=== PATIENT | female | born 1970 | race Caucasian/White ===

== ENCOUNTER 2016-05-01 07:26 | Inpatient (IN) | payer OTHER ==
--- NOTE | 2016-04-30 09:11 | HP ---
DATE OF CLINIC: 04/25/16 MARY WERNER : 1970 PLANNED PROCEDURE: Right Total Hip Arthroplasty DATE OF SURGERY: May 01, 2016 SURGEON: Philip Castro M.D. HISTORY OF PRESENT ILLNESS Mary Werner is a 45 year old female. * Medication list reviewed with patient allergy list reviewed with patient. 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 She had a CT scan and some long alignment films done and she returns today to discuss treatment options. She says that the pain is getting worse and worse. She rates in the -11/21. She is taking a bunch of Advil this is upsetting her stomach. No other changes in her complaints. After discussion and review of treatment options, both operative and nonoperative, she has elected to proceed with surgery and presents today preoperatively. PAST MEDICAL AND SURGICAL HISTORY: No changes to past medical or surgical history. CURRENT MEDICATION * Advil 200 MG CAPS, prn, 0 days, 0 refills * BuPROPion HCl ER (XL) 150 MG TB24, as directed Take 1 tab daily x2 weeks. Then increase to 2 tabs daily thereafter., 30 days, 3 refills * Ergocalciferol 11208 unit cap Capsule as directed....Take one tablet on Friday and Hosford Bimart, 28 days, 4 refills * Ferrous Sulfate 325 (65 Fe) MG Tablet Delayed Release 1 twice a day, 30 days, 4 refills * Folic Acid 1 MG Tablet 1 once a day, 30 days, 3 refills * Magnesium Gluconate 500 MG Tablet 1 once a day, 30 days, 4 refills * Symbicort 80-4.5 MCG/ACT Aerosol as directed 2 puffs twice a day, 30 days, 0 refills * Ventolin HFA 108 (90 Base) MCG/ACT Aerosol Solution 2 puffs q 4-6 h prn for cough/wheeze, 30 days, 2 refills PAST MEDICAL/SURGICAL HISTORY Reported: No recent change in medical history, LMP: 02/19/2016, Last pap smear date 01/31/2016 result: normal, and Last mammogram date: 01/05/2016 result: normal. Medical: History of Arthritis, Vertigo, Asthma, Anxiety, [place] age 15; has had eight partners; has been a monogamous relationship since 2000, and age at first period was 12. Surgical / Procedural: Prior surgery Right knee loose body removal 08/2008. : 2 and para 2. Diagnoses: Asthma Chronic obstructive pulmonary disease. Diverticulitis of colon. Urinary tract infection pyelo in the distant past. Vaginitis yeast in the past. Anemia Right knee surgery. Procedural: * Colonoscopy by [facility]IN[facility] 10/16/2014 SOCIAL HISTORY Personal: Denies history or current physical, sexual, emotional abuse. Behavioral: Caffeine use 5 cups coffee daily, current smoker 1/2-1 pack per day for 15 years, non-smoker never smoked, and smoking status: Current everyday smoker. Alcohol: Alcohol 1 drink per week. Habits: Lack of adequate sleep has a hard time going to sleep and staying asleep and not exercising regularly due to right hip pain. Home Environment: Lives with spouse Nasir and the living environment is unsatisfactory Lives in 2 bedroom manufactured home.....6 people living in the home. 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 Marital: Single Lives with fiance. Sexual: Sexually active. ALLERGIES * Amoxicillin Reaction: break out * Vicodin FAMILY HISTORY 2 children living Family history unchanged Mom fatty liver; hyperlipidemia; DM type II; HTN Dad DM type II; melanoma; restless legs; age 68 medication error Brothers and sisters healthy...pt doesn't know them well Gastric cancer Grandma Malignant female breast neoplasm Mom's half sister breast cance rin her 50s Family medical history Mother: Diabets, Father: OA, [place], HBP, Bleeding Disorders, REVIEW OF SYSTEMS No recent constitutional symptoms to include fevers and chills. No recent cardiovascular symptoms to include chest pain or palpitations. No recent respiratory symptoms to include shortness of breath or recent infections. Is positive for pain, otherwise negative. PHYSICAL FINDINGS * Vitals taken 04/25/2016 10:50 am BP-Sitting R 125/76 mmHg Pulse Rate-Sitting 68 bpm Temp-Oral 96.8 F Height 63 in Weight 153 lbs 3.2 oz Body Mass Index 27.1 kg/m2 Body Surface Area 1.73 m2 Pain Level 7 Pain Level Note 7.5/10 Ears, Nose, Throat: * ENT: normal. Lungs: * Clear to auscultation. Cardiovascular: Heart Rate And Rhythm: * Normal. Abdomen: * Normal. Neurological: Motor: * Dominant Hand = Right Hand. Patient is a well-developed, well-nourished female in no acute distress. They are awake, alert and conversant throughout the encounter. CARDIOVASCULAR: Intact peripheral pulses on bilateral lower extremities. No significant edema on inspection of bilateral lower extremities. NEUROLOGIC: Patient had intact coordinated composite motion of the bilateral lower extremities and sensation intact to light touch in all distributions of bilateral lower extremities. PSYCHIATRIC: Patient was oriented to person, place and time and displayed appropriate mood and affect during the encounter. SKIN: Exam of the skin on bilateral lower extremities showed no significant scars, lesions, rashes or masses. FOCUSED MUSCULOSKELETAL EXAM: Is unchanged, limited range of motion at the hip with flexion to about 75 degrees and obligate external rotation, 10 degrees of external rotation from neutral. No internal rotation. She can abduct about 15 degrees. She can get to full extension. She has no changes in her sensory exam, it is intact throughout. She continues to have difficulty with a straight leg raise. IMAGING A review of her length and alignment films demonstrates a very close overall length with a change of the difference of about 3 mm side to side. Her femoral lengths appear to be about matched. Her right leg appears to be slightly longer in her tibial and ankle length, it is also significantly externally rotated, overall not a ton of deformity of the hip in terms of leg length. CT scan shows significant osteophytes in the hip, but actually shows a fairly well developed acetabulum with a large prominent central osteophyte that we can remove. She has really better coverage at the top of the acetabulum than I thought that she might. Also, the proximal femur is visualized which shows significant valgus malalignment and a very vertical neck, but pretty good a bone at the calcar. ASSESSMENT This is a 45-year-old female with a grossly dysplastic right hip that has now developed significant arthrosis. PREVIOUS TESTS * Test: URINALYSIS Report Date: 04/10/2016 GLUCOSE NEGATIVE PH,URINE 7.0 SPEC. GRAVITY 1.015 KETONE NEGATIVE NITRITE NEGATIVE BLOOD NEGATIVE BILIRUBIN NEGATIVE APPEARANCE CLEAR PROTEIN NEGATIVE COLOR YELLOW LEUK ESTERASE NEGATIVE UROBILINOGEN NORMAL * Test: CBC NO DIFF Report Date: 04/10/2016 WBC 5.1 10*3/mL MCV 96.6 fL RBC 4.07 10*6/uL Low MCH 33.4 pg High MCHC 34.6 g/dL RDW 12.4 % PLATELET COUNT 249 10*3/mL HCT 39.3 % HGB 13.6 g/L * Test: PROTHROMBIN TIME Report Date: 04/10/2016 PROTIME 9.7 s INR 0.92 * Test: PARTIAL THROMBOPLASTIN TIME Report Date: 04/10/2016 APTT 24.1 s Low * Test: COMPREHENSIVE METABOLIC PANEL Report Date: 04/10/2016 ALT/SGPT 11 U/L ALBUMIN 4.5 g/dL ALB/GLOB RATIO 1.7 BUN 18 mg/dL BUN/CREAT RATIO 23 High CALCIUM 9.8 mg/dL GLUCOSE 96 mg/dL CREATININE 0.8 mg/dL SODIUM 139 meq/L POTASSIUM 4.6 meq/L CHLORIDE 103 meq/L CARBON DIOXIDE 29 meq/L ANION GAP 12 meq/L TOT PROTEIN 7.1 g/dL GLOBULIN 2.6 g/dL BILI,TOTAL 0.8 mg/dL AST/SGOT 13 U/L ALK PHOSPHATASE 57 U/L GFR 77 * Test: MRSA SCREEN Report Date: 04/11/2016 MRSA SCREEN NEGATIVE * Test: MSSA SCREEN Report Date: 04/11/2016 MSSA SCREEN NEGATIVE FOR STAPHYLOCOCCUS AUREUS THERAPY * Patient not eligible for fall risk assessment. PLAN * Unilateral osteoarth resulting from hip dysplasia, right hip Physical Therapy: [facility] [phone] Instructions: Post-op Rehab Right s/p KRISTIN SX: 05/01/16 please scheduled appt the week of 05/06/16 OxyCONTIN 10 MG T12A, Take 1 tablet by mouth every 12 hours for baseline pain contro, 10 days, 0 refills OxyCODONE HCl 5 MG TABS, Take 1-2 tablets by mouth every 4-6 hours as needed for severe breakthrough pain (6-9/10), 14 days, 0 refills TraMADol HCl 50 MG TABS, Take 1-2 tablets by mouth every 6-8 hours as needed for moderate breakthrough pain (3-5/10), 14 days, 0 refills * Total hip replacement -Right CARE TEAM Mariano Cohn MD Pulmonary Disease Miya Nair MD Family Practice Trinh Mccullough, [employer] [facility] SURGICAL CONSENT We have discussed surgical options including right KRISTIN and nonoperative management. The patient was counseled in detail regarding the diagnosis, treatment options available, prognosis of each treatment option and the potential risks and complications. The risks of surgery include, but are not limited to, anesthetic , neurovascular complications, pulmonary embolism, deep vein thrombosis, wound dehiscence, failure of any or all of the discussed procedures, infection of the joint or surrounding soft tissue, need for revision surgery, chronic pain, limitations in activities of daily living, inability to return to work, and loss of normal range of motion or functional use of the extremity. There is the possibility of failure over time that may require additional operative or nonoperative treatment. The patient acknowledged that there are a number of perioperative risks not mentioned here and would still like to proceed. The patient is aware of and understands these risks, and wishes to proceed with the proposed surgical procedure and other procedures as indicated at the time of surgery. We will have the patient see their PCP for a preoperative medical risk assessment. The preoperative instructions were reviewed with the patient and all questions were answered.
[2016-05-01] MEDS ORDERED: TRANEXAMIC ACID 1,000 MG in SODIUM CHLORIDE 0.9% 100 ML IV PRN (09:00)
[2016-05-01] MEDS ORDERED: BUPIVACAINE 0.25% (MDV) 20 ML in SODIUM CHLORIDE 0.9% FLUSH 20 ML IF PRN (09:00)
[2016-05-01] MEDS ORDERED: TRAMADOL HCL 50 MG TABLET PO ONE (09:00)
[2016-05-01] MEDS ORDERED: OXYCODONE HCL 10 MG TAB.SR PO ONE ×2 (09:00→09:21)
[2016-05-01] MEDS ORDERED: FAMOTIDINE 20 MG TABLET PO ONE (09:00)
[2016-05-01] MEDS ORDERED: ONDANSETRON 4 MG/2ML 2 ML VIAL IV ONE (09:00)
[2016-05-01] MEDS ORDERED: GABAPENTIN 600 MG TABLET PO ONE (09:00)
[2016-05-01] MEDS ORDERED: CELECOXIB 200 MG CAPSULE PO ONE (09:00)
[2016-05-01] MEDS ORDERED: CLONIDINE HCL 0.1 MG/24 HR (7 DAY PATCH) TD SCH (09:00)
[2016-05-01] MEDS ORDERED: CLINDAMYCIN 600 MG PREMIX 50 ML IV PRN (09:00)
[2016-05-01] MEDS ORDERED: BUPIVACAINE 0.25% (MDV) 24 ML, MORPHINE SULFATE 8 MG, EPINEPHRINE 0.3 MG in SODIUM CHLO... IF PRN ×8 (09:00)
[2016-05-01] MEDS ORDERED: POLYMYXIN B SULFATE 500,000 UNITS, BACITRACIN 25,000 UNITS in SODIUM CHLORIDE 3 L IRRIG... IR PRN (09:00)
[2016-05-01] MEDS ORDERED: LACTATED RINGERS 1,000 ML ONE ×3 (09:17→17:47)
[2016-05-01] MEDS ORDERED: CLINDAMYCIN 600 MG PREMIX 50 ML IV ONE (09:20)
[2016-05-01] MEDS ORDERED: FAMOTIDINE 20 MG TABLET ONE (09:21)
[2016-05-01] MEDS ORDERED: ONDANSETRON 4 MG/2ML 2 ML VIAL ONE ×2 (09:21→16:22)
[2016-05-01] MEDS ORDERED: PROPOFOL 20 ML IV ONE ×3 (09:21→15:54)
[2016-05-01] MEDS ORDERED: TRAMADOL HCL 50 MG TABLET ONE (09:21)
[2016-05-01] MEDS ORDERED: CELECOXIB 200 MG CAPSULE ONE (09:22)
[2016-05-01] MEDS ORDERED: GABAPENTIN 600 MG TABLET ONE (09:22)
[2016-05-01] MEDS ORDERED: CLONIDINE HCL 0.1 MG/24 HR (7 DAY PATCH) TD ONE (09:22)
[2016-05-01] MEDS ORDERED: MIDAZOLAM HCL 1 MG/ML 2ML VIAL ONE ×2 (09:22→13:40)
[2016-05-01] MEDS ORDERED: FENTANYL 100 MCG/2 ML VIAL ONE (09:22)
[2016-05-01] MEDS ORDERED: SPINAL PROCEDURAL TRAY 1 EACH ONE (10:18)
[2016-05-01] MEDS ORDERED: EPHEDRINE SULFATE UD SYR 25 MG 25 MG/5 ML SYRINGE IV ONE ×2 (14:20→15:03)
[2016-05-01] MEDS ORDERED: DEXAMETHASONE SOD PHOS 4 MG/1 ML VIAL ONE (14:30)
[2016-05-01] MEDS ORDERED: GLYCOPYRROLATE 0.2 MG/ML 1ML VIAL ONE (15:03)
[2016-05-01] MEDS ORDERED: PHENYLEPHRINE 10 MG/1 ML (1%) VIAL ONE (15:17)
[2016-05-01] MEDS ORDERED: PROMETHAZINE HCL 25 MG/ML VIAL IM PRN (15:40)
[2016-05-01] MEDS ORDERED: NALOXONE HCL 0.4 MG/ML VIAL IV PRN (15:40)
[2016-05-01] MEDS ORDERED: ONDANSETRON 4 MG/2ML 2 ML VIAL IV PRN (15:40)
[2016-05-01] MEDS ORDERED: HYDROMORPHONE HCL 1 MG/ML SYRINGE IV PRN (15:40)
[2016-05-01] MEDS ORDERED: FENTANYL 100 MCG/2 ML VIAL IV PRN (15:40)
[2016-05-01] MEDS ORDERED: ATROPINE SULFATE 0.4 MG/1 ML VIAL IV PRN (15:40)
[2016-05-01] MEDS ORDERED: MEPERIDINE 25 MG/ML SYRINGE IV PRN (15:40)
[2016-05-01] MEDS ORDERED: LACTATED RINGERS 1,000 ML IV SCH ×2 (15:45→18:16)
--- NOTE | 2016-05-01 16:29 | RAD ---
HIP RIGHT 1 VIEW HISTORY: Intraoperative examination during placement of right hip arthroplasty. COMPARISONS: 12/28/2015. FINDINGS: A single intraoperative view of the right hip was obtained. There is been interval resection of the right femoral head and a portion of the right femoral neck with a metallic acetabular component noted in place. The visualized osseous pelvis is intact. There is radiopaque material projecting over the patient's pelvis, likely external to the patient. IMPRESSION: 1. A single intraoperative examination demonstrating resection of the femoral head and a portion of the femoral neck with placement of a metallic acetabular component.
--- NOTE | 2016-05-01 16:32 | RAD ---
HIP RIGHT 1 VIEW HISTORY: Intraoperative examination during hip arthroplasty. COMPARISONS: Examination of the same day as well as examination dated 12/28/2015. FINDINGS: Since the most recent examination, there is been placement of a femoral metallic component with the femoral neck component projecting adjacent to the acetabular component. No definite pericomponent fracture is visualized. There are metallic forceps as well as radiopaque material projecting over the lower abdomen and the medial thighs which are likely external to the patient. IMPRESSION: 1. Intraoperative examination during right hip arthroplasty demonstrating a total right hip arthroplasty with no evidence of a pericomponent fracture identified.
--- NOTE | 2016-05-01 16:42 | PCMBPN ---
Brief Post Op Note: Date of Procedure: 05/01/16 Start Time: 1400 Preoperative Diagnosis: 1. right hip arthritis secondary to developmental dysplasia Postoperative Diagnosis: 1. Same Procedure: left total hip arthroplasty Surgeon: Philip Castro MD Assist: Juan Kirkland PA-C Anesthesia: Letha Gar Findings: as above Condition: stable to PACU Complications: none IV Fluids: 2500 mLs of LR Urine Output: 200 mLs Estimated Blood Loss: 350 mLs Tourniquet Time: N/A Specimens: N/A Implants: [place] [place] 54 mm cup, SROM 11 stem/F small sleeve/36 neck/36 +9 head Drains: N/A Philip Castro MD
--- NOTE | 2016-05-01 17:12 | RAD ---
Name: GISELLE WERNER Exam: Right hip Comparison: Intraoperative exam Clinical history: Right hip replacement Findings: AP view of the right hip is submitted. There is been revision of the right hip arthroplasty with prosthetic components in normal position. There is no evidence for fracture or dislocation on this single image. Overlying and adjacent soft tissue air is noted. Impression: Normal postop appearance of the right hip arthroplasty on this single view. Orthogonal views were not obtained. Please see operative report for further information.
[2016-05-01] MEDS ORDERED: HYDROMORPHONE HCL 0.5 MG/0.5 ML SYRINGE IV PRN (18:16)
[2016-05-01] MEDS ORDERED: HYDROXYZINE PAMOATE 25 MG CAPSULE PO PRN (18:16)
[2016-05-01] MEDS ORDERED: CALCIUM CARBONATE 500 MG TAB.CHEW PO PRN (18:16)
[2016-05-01] MEDS ORDERED: CEFAZOLIN SODIUM 1 GRAM PREMIX 1 G in Premix (D5W) 50 ml 1 EACH IV SCH (18:16)
[2016-05-01] MEDS ORDERED: TRAZODONE HCL 50 MG TABLET PO PRN (18:16)
[2016-05-01 18:47] LABS: HEMATOCRIT 23.2 % (37.0-47.0); HEMOGLOBIN 7.8 gm/l (12.0-16.0)
[2016-05-01] MEDS: ONDANSETRON 4 MG/2ML 2 ML VIAL IV PRN (20:06)
[2016-05-01] MEDS ORDERED: PUMP TUBING ONE (21:04)
[2016-05-01] MEDS: D5 1/2NS with 20 mEq KCL 1,000 ML IV SCH (21:13)
[2016-05-01] MEDS: ACETAMINOPHEN 500 MG TABLET PO SCH (21:45)
[2016-05-01] MEDS: KETOROLAC TROMETHAMINE 30 MG/ML 1 ML VIAL IV PRN (21:46)
[2016-05-01] MEDS: ASCORBIC ACID 500 MG TABLET PO SCH (21:46)
[2016-05-01] MEDS: DOCUSATE SODIUM 100 MG CAPSULE PO SCH (21:46)
[2016-05-01] MEDS: OXYCODONE HCL 10 MG TAB.SR PO SCH (21:49)
[2016-05-01] MEDS: CLINDAMYCIN 600 MG PREMIX 600 MG in Premix (D5W) 50 ml 1 EACH IV SCH (22:58)
[2016-05-01 23:40] VITALS: BMI 26.8
[2016-05-02] MEDS: D5 1/2NS with 20 mEq KCL 1,000 ML IV SCH ×4 (03:51→17:34)
[2016-05-02] MEDS: ACETAMINOPHEN 500 MG TABLET PO SCH ×5 (03:51→22:10)
[2016-05-02] MEDS: CLINDAMYCIN 600 MG PREMIX 600 MG in Premix (D5W) 50 ml 1 EACH IV SCH (05:03)
[2016-05-02 06:25] LABS: MEAN CELL VOLUME 100.5 fl (81.0-99.0); MEAN CORPUSCULAR HEMOGLOBIN 32.8 pg (27.0-31.0); MEAN CORPUSCULAR HGB CONC 32.7 g/dl (33.0-37.0); RED CELL DISTRIBUTION WIDTH 12.7 % (11.5-14.5)
[2016-05-02 06:32] LABS: HEMATOCRIT 19.9 % (37.0-47.0); HEMOGLOBIN 6.5 gm/l (12.0-16.0)
[2016-05-02 06:41] LABS: CALCIUM 7.9 mg/dL (8.6-10.3)
[2016-05-02] MEDS ORDERED: ALBUTEROL SULFATE MDI 60 PUFFS/INHALER IH PRN (07:07)
[2016-05-02] MEDS ORDERED: DIPHENHYDRAMINE HCL 25 MG CAPSULE PO ONE (07:18)
[2016-05-02] MEDS ORDERED: SODIUM CHLORIDE 0.9% 500 ML IV PRN (07:18)
[2016-05-02] MEDS: REMOVE PATCH 1 EACH UNIT TD ONE ×2 (08:30→15:57)
[2016-05-02] MEDS ORDERED: REMOVE PATCH 1 EACH UNIT TD SCH (09:00)
[2016-05-02] MEDS: ONDANSETRON 4 MG/2ML 2 ML VIAL IV PRN ×2 (09:02→20:27)
[2016-05-02] MEDS: BUDESONIDE/FORMOTEROL 160/4.5 60 PUFFS/6 G INHALER IH SCH ×2 (09:02→20:29)
[2016-05-02] MEDS ORDERED: BLOOD Y PLUMSET W/CASSETTE ONE (09:04)
[2016-05-02] MEDS: OXYCODONE HCL 10 MG TAB.SR PO SCH (09:08)
[2016-05-02] MEDS: ASPIRIN (ENTERIC COATED) 325 MG TABLET.EC PO SCH (09:08)
[2016-05-02] MEDS: FERROUS SULFATE (65 Fe) 325 MG TABLET PO SCH (09:33)
[2016-05-02] MEDS: MULTIVITAMINS 1 TAB TABLET PO SCH (09:33)
[2016-05-02] MEDS: DOCUSATE SODIUM 100 MG CAPSULE PO SCH ×2 (09:33→20:28)
[2016-05-02] MEDS: Magnesium Oxide 400 MG TABLET PO SCH ×3 (09:33→20:28)
[2016-05-02] MEDS: FOLIC ACID 1 MG TABLET PO SCH (09:33)
[2016-05-02] MEDS: ASCORBIC ACID 500 MG TABLET PO SCH ×2 (09:33→20:27)
[2016-05-02] MEDS ORDERED: CYANOCOBALAMIN 1,000 MCG/ML VIAL IM SCH (12:00)
--- NOTE | 2016-05-02 12:32 | PDOC43 ---
- Subjective Findings: POD1 after Right KRISTIN. Patient reports lightheaded/dizzy this morning, and right leg/foot still feels numb/tingling. Subjective: Reports Pain Tolerable, Reports Nausea, Denies Chest Pain, Denies Shortness of Breath - Objective Vital Signs Temperature 98.1 F 05/02/16 12:20 Pulse Rate 71 05/02/16 12:20 Respiratory Rate 16 05/02/16 12:20 Blood Pressure 80/45 05/02/16 12:20 O2 Saturation by Pulse Oximetry 97 05/02/16 12:20 Oxygen Delivery Method Room Air Oxygen Flow Rate 0 Laboratory 05/02/16 05:30 05/02/16 05:30 05/02/16 05/01/16 05:30 09:41 RBC 1.98 L MCV 100.5 H MCH 32.8 H MCHC 32.7 L Anion Gap 6 L Estimated GFR 108 H Calcium 7.9 L Crossmatch See Detail Active Medication Orders Category Date Time Status Acetaminophen [Tylenol] Med 05/01/16 18:16 Active 1,000 mg PO Q6H Albuterol Sulfate Mdi [Ventolin Hfa Mdi] Med 05/02/16 07:07 Active 2 puffs IH Q4H PRN Ascorbic Acid [Vitamin C] Med 05/01/16 21:00 Active 500 mg PO BID Aspirin (Enteric Coated) [Ecotrin] Med 05/02/16 09:00 Active 325 mg PO DAILY Bisacodyl [Dulcolax] Med 05/04/16 16:30 Active 10 mg WI DAILY PRN Budesonide/Formoterol 160/4.5 [Symbicort 160-4.5 Mcg Med 05/02/16 09:00 Active Inhaler] 1 puffs IH BID Calcium Carbonate [Tums] Med 05/01/16 18:16 Active 1,000 - 2,000 mg PO Q2H PRN Cyanocobalamin [Vitamin B-12] Med 05/02/16 12:00 Active 1,000 mcg IM Q14D D5 1/2NS with 20 mEq KCL [D51/2NS with 20 mEq KCL] 1, Med 05/01/16 18:16 Active 000 ml IV 125 mls/hr Docusate Sodium [Colace] Med 05/01/16 21:00 Active 100 mg PO BID Ergocalciferol [Vitamin D] Med 05/02/16 16:00 Active 50,000 units PO MoTh FERROUS SULFATE (65 Fe) [Ferrous Sulfate] Med 05/02/16 09:00 Active 325 mg PO DAILY Folic Acid Med 05/02/16 09:00 Active 2 mg PO DAILY Hydromorphone HCl [Dilaudid] Med 05/01/16 18:16 Active 0.5 mg IV Q1H PRN Hydroxyzine Pamoate [Vistaril] Med 05/01/16 18:16 Active 25 - 50 mg PO Q4H PRN Ketorolac Tromethamine [Toradol] Med 05/01/16 18:16 Active 30 mg IV Q6H PRN Magnesium Hydroxide [Milk of Magnesia] Med 05/02/16 16:30 Active 30 ml PO DAILY PRN Magnesium Oxide Med 05/02/16 09:00 Active 400 mg PO TID Multivitamins [One-A-Day] Med 05/02/16 09:00 Active 1 tab PO DAILY Ondansetron 4 mg/2ml Vial [Zofran] Med 05/01/16 18:16 Active 4 - 6 mg IV Q6H PRN Oxycodone HCl [Roxicodone] Med 05/01/16 18:16 Active 5 - 10 mg PO Q4H PRN Oxycodone Sr [Oxycontin] Med 05/01/16 21:00 Active 10 mg PO Q12HR Remove Patch Med 05/02/16 16:30 Once 1 each TD X1 ONE Sodium Chloride 0.9% 500 ml Med 05/02/16 07:18 Active IV 25 mls/hr Sodium Chloride 0.9% Flush [Normal Saline 10ml Flush] Med 05/01/16 18:16 Active 10 - 50 ml IV PRN PRN Sodium Chloride 0.9% Flush [Normal Saline 10ml Flush] Med 05/02/16 01:00 Active 10 ml IV Q8HR Tramadol HCl [Ultram] Med 05/02/16 00:30 Active 50 mg PO Q6H PRN Trazodone HCl [Desyrel] Med 05/01/16 18:16 Active 25 mg PO BEDTIME PRN Intake and Output 04/30/16 05/01/16 05/02/16 23:59 23:59 23:59 Intake Total 3250 2902 Output Total 550 750 Balance 2700 2152 General: Afebrile Lungs: Normal Air Movement Skin: Normal Color, Warm, Dry - Right Lower Extremity Incision: Dressing Clean/Dry/Intact, Well Approximated, [place] Intact, No Dressing Saturated, No Erythema, No Rash Motor: Extensor Hallucis Longus: 5/5, Tibialis Anterior: 5/5, Gastrocnemius: 5/5 Gross Sensation to Light Touch: Present: Deep Peroneal Nerve, Superficial Peroneal Nerve - Problems (1) Status post total hip replacement, right Status: Acute - Additional Comments 1. Physical Therapy: WBAT with FWW after transfusion this afternoon, Continue to mobilize. Plan for discharge home Friday. 2. Pain Control: Multimodal pain control as needed. 3. DVT Prophylaxis: ASA 325mg daily, mobilization. 4. Disposition: Plan for discharge home Friday. 5. Medical Issues: Low H/H this morning, Dr. Castro ordered transfusion today.
[2016-05-02] MEDS ORDERED: SODIUM CHLORIDE 0.9% 1,000 ML IV ONE (13:37)
[2016-05-02] MEDS: KETOROLAC TROMETHAMINE 30 MG/ML 1 ML VIAL IV PRN (13:42)
[2016-05-02] MEDS ORDERED: ERGOCALCIFEROL 50,000 UNITS CAPSULE PO SCH (16:00)
[2016-05-02] MEDS ORDERED: MAGNESIUM HYDROXIDE 30 ML UDCUP PO PRN (16:30)
[2016-05-02 18:05] LABS: HEMATOCRIT 24.4 % (37.0-47.0); HEMOGLOBIN 8.4 gm/l (12.0-16.0)
[2016-05-02] MEDS: TRAMADOL HCL 50 MG TABLET PO PRN (20:33)
[2016-05-03] MEDS: D5 1/2NS with 20 mEq KCL 1,000 ML IV SCH ×5 (00:02→20:24)
[2016-05-03] MEDS: ACETAMINOPHEN 500 MG TABLET PO SCH ×4 (04:40→16:49)
[2016-05-03 05:55] LABS: HEMATOCRIT 24.4 % (37.0-47.0); HEMOGLOBIN 8.2 gm/l (12.0-16.0)
[2016-05-03] MEDS: TRAMADOL HCL 50 MG TABLET PO PRN ×2 (06:10→13:24)
[2016-05-03] MEDS: BUDESONIDE/FORMOTEROL 160/4.5 60 PUFFS/6 G INHALER IH SCH ×3 (06:29→20:23)
[2016-05-03] MEDS: OXYCODONE HCL 5 MG TABLET PO PRN ×3 (07:19→15:24)
[2016-05-03] MEDS: DOCUSATE SODIUM 100 MG CAPSULE PO SCH ×2 (08:35→20:24)
[2016-05-03] MEDS: ASCORBIC ACID 500 MG TABLET PO SCH ×2 (08:35→20:23)
[2016-05-03] MEDS: FOLIC ACID 1 MG TABLET PO SCH (08:35)
[2016-05-03] MEDS: MULTIVITAMINS 1 TAB TABLET PO SCH (08:35)
[2016-05-03] MEDS: FERROUS SULFATE (65 Fe) 325 MG TABLET PO SCH (08:35)
[2016-05-03] MEDS: Magnesium Oxide 400 MG TABLET PO SCH ×3 (08:36→20:23)
[2016-05-03] MEDS: ASPIRIN (ENTERIC COATED) 325 MG TABLET.EC PO SCH (08:36)
--- NOTE | 2016-05-03 08:39 | PDOC43 ---
- Subjective Findings: POD2 after Right KRISTIN, Still sore right hip, but patient is eager to go home today. Subjective: Reports Pain Tolerable - Objective Vital Signs Temperature 98.1 F 05/03/16 07:21 Pulse Rate 71 05/03/16 07:21 Respiratory Rate 16 05/03/16 07:21 Blood Pressure 91/56 05/03/16 07:21 O2 Saturation by Pulse Oximetry 98 05/03/16 07:21 Oxygen Delivery Method Room Air Oxygen Flow Rate 0 Laboratory 05/03/16 05:30 05/02/16 05:30 05/01/16 09:41 Crossmatch See Detail Active Medication Orders Category Date Time Status Acetaminophen [Tylenol] Med 05/01/16 18:16 Active 1,000 mg PO Q6H Albuterol Sulfate Mdi [Ventolin Hfa Mdi] Med 05/02/16 07:07 Active 2 puffs IH Q4H PRN Ascorbic Acid [Vitamin C] Med 05/01/16 21:00 Active 500 mg PO BID Aspirin (Enteric Coated) [Ecotrin] Med 05/02/16 09:00 Active 325 mg PO DAILY Bisacodyl [Dulcolax] Med 05/04/16 16:30 Active 10 mg MD DAILY PRN Budesonide/Formoterol 160/4.5 [Symbicort 160-4.5 Mcg Med 05/02/16 09:00 Active Inhaler] 1 puffs IH BID Calcium Carbonate [Tums] Med 05/01/16 18:16 Active 1,000 - 2,000 mg PO Q2H PRN Cyanocobalamin [Vitamin B-12] Med 05/02/16 12:00 Active 1,000 mcg IM Q14D D5 1/2NS with 20 mEq KCL [D51/2NS with 20 mEq KCL] 1, Med 05/01/16 18:16 Active 000 ml IV 125 mls/hr Docusate Sodium [Colace] Med 05/01/16 21:00 Active 100 mg PO BID Ergocalciferol [Vitamin D] Med 05/02/16 16:00 Active 50,000 units PO MoTh FERROUS SULFATE (65 Fe) [Ferrous Sulfate] Med 05/02/16 09:00 Active 325 mg PO DAILY Folic Acid Med 05/02/16 09:00 Active 2 mg PO DAILY Hydromorphone HCl [Dilaudid] Med 05/01/16 18:16 Active 0.5 mg IV Q1H PRN Hydroxyzine Pamoate [Vistaril] Med 05/01/16 18:16 Active 25 - 50 mg PO Q4H PRN Magnesium Hydroxide [Milk of Magnesia] Med 05/02/16 16:30 Active 30 ml PO DAILY PRN Magnesium Oxide Med 05/02/16 09:00 Active 400 mg PO TID Multivitamins [One-A-Day] Med 05/02/16 09:00 Active 1 tab PO DAILY Ondansetron 4 mg/2ml Vial [Zofran] Med 05/01/16 18:16 Active 4 - 6 mg IV Q6H PRN Oxycodone HCl [Roxicodone] Med 05/01/16 18:16 Active 5 - 10 mg PO Q4H PRN Oxycodone Sr [Oxycontin] Med 05/01/16 21:00 Hold 10 mg PO Q12HR Sodium Chloride 0.9% 500 ml Med 05/02/16 07:18 Active IV 25 mls/hr Sodium Chloride 0.9% Flush [Normal Saline 10ml Flush] Med 05/01/16 18:16 Active 10 - 50 ml IV PRN PRN Sodium Chloride 0.9% Flush [Normal Saline 10ml Flush] Med 05/02/16 01:00 Active 10 ml IV Q8HR Tramadol HCl [Ultram] Med 05/02/16 00:30 Active 50 mg PO Q6H PRN Trazodone HCl [Desyrel] Med 05/01/16 18:16 Active 25 mg PO BEDTIME PRN Intake and Output 05/01/16 05/02/16 05/03/16 23:59 23:59 23:59 Intake Total 3250 4567 1061 Output Total 550 1900 600 Balance 2700 2667 461 Lungs: Normal Air Movement Skin: Normal Color, Warm, Dry - Right Lower Extremity Incision: Dressing Clean/Dry/Intact, Well Approximated, [place] Intact, No Dressing Saturated Motor: Extensor Hallucis Longus: 5/5, Tibialis Anterior: 5/5 Gross Sensation to Light Touch: Present: Deep Peroneal Nerve, Superficial Peroneal Nerve - Problems (1) Status post total hip replacement, right Status: Acute - Additional Comments POD2 after Right KRISTIN 1. Physical Therapy: WBAT with FWW. Continue to mobilize. Plan for discharge Friday. 2. Pain Control: Multimodal pain control as needed. 3. DVT Prophylaxis: ASA 325mg daily, mobilization. 4. Disposition: Plan for discharge home Friday. 5. Medical Issues: Low H/H this morning but stable.
[2016-05-03] MEDS: OXYCODONE HCL 10 MG TAB.SR PO SCH ×2 (10:29→20:23)
[2016-05-03] MEDS: ONDANSETRON 4 MG/2ML 2 ML VIAL IV PRN ×2 (14:23→20:23)
[2016-05-04] MEDS: ACETAMINOPHEN 500 MG TABLET PO SCH ×5 (00:36→21:30)
[2016-05-04] MEDS: OXYCODONE HCL 5 MG TABLET PO PRN ×2 (01:03→15:14)
[2016-05-04] MEDS: ONDANSETRON 4 MG/2ML 2 ML VIAL IV PRN ×4 (01:03→21:28)
[2016-05-04] MEDS: D5 1/2NS with 20 mEq KCL 1,000 ML IV SCH ×3 (04:43→21:18)
[2016-05-04 06:56] LABS: HEMATOCRIT 25.1 % (37.0-47.0); HEMOGLOBIN 8.4 gm/l (12.0-16.0)
[2016-05-04] MEDS: FERROUS SULFATE (65 Fe) 325 MG TABLET PO SCH ×2 (07:40→09:10)
[2016-05-04] MEDS: DOCUSATE SODIUM 100 MG CAPSULE PO SCH ×3 (07:40→21:28)
[2016-05-04] MEDS: ASPIRIN (ENTERIC COATED) 325 MG TABLET.EC PO SCH ×2 (07:40→09:10)
[2016-05-04] MEDS: Magnesium Oxide 400 MG TABLET PO SCH ×4 (07:41→21:28)
[2016-05-04] MEDS: FOLIC ACID 1 MG TABLET PO SCH ×2 (07:41→12:44)
[2016-05-04] MEDS: OXYCODONE HCL 10 MG TAB.SR PO SCH ×3 (07:42→21:28)
[2016-05-04] MEDS: ASCORBIC ACID 500 MG TABLET PO SCH ×3 (07:42→21:28)
[2016-05-04] MEDS: MULTIVITAMINS 1 TAB TABLET PO SCH ×2 (07:42→09:11)
[2016-05-04] MEDS: BUDESONIDE/FORMOTEROL 160/4.5 60 PUFFS/6 G INHALER IH SCH ×2 (08:05→21:30)
--- NOTE | 2016-05-04 09:58 | PDOC43 ---
- Subjective Findings: Patient doing well this morning, pain controlled, tolerating diet and therapies. Still has some feelings of fatigue but is tolerating physical therapy without wearing out. No events overnight, no new complaints. Subjective: Reports Pain Tolerable, Reports Nausea, Denies Chest Pain, Denies Shortness of Breath, Denies Vomiting, Denies Fever - Objective Vital Signs Temperature 98.0 F 05/04/16 07:04 Pulse Rate 79 05/04/16 07:04 Respiratory Rate 16 05/04/16 07:04 Blood Pressure 94/48 05/04/16 07:04 O2 Saturation by Pulse Oximetry 97 05/04/16 07:04 Oxygen Delivery Method Room Air Oxygen Flow Rate 0 Laboratory 05/04/16 05:30 05/02/16 05:30 Active Medication Orders Category Date Time Status Acetaminophen [Tylenol] Med 05/01/16 18:16 Active 1,000 mg PO Q6H Albuterol Sulfate Mdi [Ventolin Hfa Mdi] Med 05/02/16 07:07 Active 2 puffs IH Q4H PRN Ascorbic Acid [Vitamin C] Med 05/01/16 21:00 Active 500 mg PO BID Aspirin (Enteric Coated) [Ecotrin] Med 05/02/16 09:00 Active 325 mg PO DAILY Bisacodyl [Dulcolax] Med 05/04/16 16:30 Active 10 mg MD DAILY PRN Budesonide/Formoterol 160/4.5 [Symbicort 160-4.5 Mcg Med 05/02/16 09:00 Active Inhaler] 1 puffs IH BID Calcium Carbonate [Tums] Med 05/01/16 18:16 Active 1,000 - 2,000 mg PO Q2H PRN Cyanocobalamin [Vitamin B-12] Med 05/02/16 12:00 Active 1,000 mcg IM Q14D D5 1/2NS with 20 mEq KCL [D51/2NS with 20 mEq KCL] 1, Med 05/01/16 18:16 Active 000 ml IV 125 mls/hr Docusate Sodium [Colace] Med 05/01/16 21:00 Active 100 mg PO BID Ergocalciferol [Vitamin D] Med 05/02/16 16:00 Active 50,000 units PO MoTh FERROUS SULFATE (65 Fe) [Ferrous Sulfate] Med 05/02/16 09:00 Active 325 mg PO DAILY Folic Acid Med 05/02/16 09:00 Active 2 mg PO DAILY Hydromorphone HCl [Dilaudid] Med 05/01/16 18:16 Active 0.5 mg IV Q1H PRN Hydroxyzine Pamoate [Vistaril] Med 05/01/16 18:16 Active 25 - 50 mg PO Q4H PRN Magnesium Hydroxide [Milk of Magnesia] Med 05/02/16 16:30 Active 30 ml PO DAILY PRN Magnesium Oxide Med 05/02/16 09:00 Active 400 mg PO TID Multivitamins [One-A-Day] Med 05/02/16 09:00 Active 1 tab PO DAILY Ondansetron 4 mg/2ml Vial [Zofran] Med 05/01/16 18:16 Active 4 - 6 mg IV Q6H PRN Oxycodone HCl [Roxicodone] Med 05/01/16 18:16 Active 5 - 10 mg PO Q4H PRN Oxycodone Sr [Oxycontin] Med 05/01/16 21:00 Active 10 mg PO Q12HR Sodium Chloride 0.9% 500 ml Med 05/02/16 07:18 Active IV 25 mls/hr Sodium Chloride 0.9% Flush [Normal Saline 10ml Flush] Med 05/01/16 18:16 Active 10 - 50 ml IV PRN PRN Sodium Chloride 0.9% Flush [Normal Saline 10ml Flush] Med 05/02/16 01:00 Active 10 ml IV Q8HR Tramadol HCl [Ultram] Med 05/02/16 00:30 Active 50 mg PO Q6H PRN Trazodone HCl [Desyrel] Med 05/01/16 18:16 Active 25 mg PO BEDTIME PRN Intake and Output 05/02/16 05/03/16 05/04/16 23:59 23:59 23:59 Intake Total 4567 3089 1120 Output Total 1900 1675 200 Balance 2667 1414 920 General: Afebrile, No Acute Distress HEENT: Atraumatic, EOMI Lungs: Normal Air Movement Abdomen: Soft, No Tenderness Skin: Normal Color, Warm, Dry, Intact Neurological: Grossly Intact, Alert, Oriented x 4, Normal Speech, No Normal Gait Psych/Mental Status: Normal Affect, Normal Mood - Right Lower Extremity Incision: Dressing Clean/Dry/Intact, Well Approximated, Sb Intact, No Drainage, No Erythema, No Rash, No Ecchymosis Motor: Extensor Hallucis Longus: 5/5, Tibialis Anterior: 5/5, Gastrocnemius: 5/5 , Peroneals: 5/5, Quadriceps: 4/5 Gross Sensation to Light Touch: Present: Deep Peroneal Nerve, Superficial Peroneal Nerve, Medial Plantar Nerve, Lateral Plantar Nerve, Sural Nerve, Saphenous Nerve Capillary Refill: < 3 Seconds Motion: 0-70 (posterior hip precautions) - Problems (1) Status post total hip replacement, right Status: Acute Assessment/Plan: POD#3 R KRISTIN 1. Physical Therapy: Ambulate, stair training per protocol. Expect she will need therapy today and tomorrow to be safe for discharge home. 2. Pain Control: Doing well on multimodal; pressure seems to be handling the narcotics better than it was initially. 3. DVT Prophylaxis: ASA 325 daily/mechanical/ambulation 4. Disposition: home with family assist, likely tomorrow 5. Medical Issues: pressure improved, H/H stable, seems to be a bit lethargic but not tachycardic with therapy so will continue monitor. Philip Castro MD (2) Anemia associated with acute blood loss Status: Acute Assessment/Plan: Acute blood loss during surgery (500 mL); now s/p transfusion with acceptable, stable H/H (3) Hypotension due to medication Status: Acute Assessment/Plan: Patient initially moderately hypotensive postop, likely due to combination of narcotic meds and volume loss. Now improved, responding appropriately with mobilization, no orthostatic symptoms.
[2016-05-04] MEDS ORDERED: PROMETHAZINE HCL 12.5 MG in SODIUM CHLORIDE 0.9% 50 ML IV PRN (11:15)
[2016-05-04] MEDS ORDERED: BISACODYL 10 MG SUP PR PRN (16:30)
[2016-05-05] MEDS: ACETAMINOPHEN 500 MG TABLET PO SCH ×2 (03:04→09:57)
[2016-05-05] MEDS: D5 1/2NS with 20 mEq KCL 1,000 ML IV SCH ×2 (03:05→10:00)
[2016-05-05] MEDS: ONDANSETRON 4 MG/2ML 2 ML VIAL IV PRN ×2 (03:05→08:30)
[2016-05-05 07:31] VITALS: BP 97/53
--- NOTE | 2016-05-05 09:24 | PDOC43 ---
- Subjective Findings: Doing well this AM, energy improved, did well with PT for ambulation and stair training. Eager to get home today. Subjective: Reports Flatus, Reports Pain Tolerable, Denies Chest Pain, Denies Shortness of Breath - Objective Vital Signs Temperature 98.8 F 05/05/16 07:30 Pulse Rate 78 05/05/16 07:30 Respiratory Rate 16 05/05/16 07:30 Blood Pressure 97/53 05/05/16 07:30 O2 Saturation by Pulse Oximetry 97 05/05/16 07:30 Oxygen Delivery Method Room Air Oxygen Flow Rate 0 Laboratory 05/04/16 05:30 05/02/16 05:30 Active Medication Orders Category Date Time Status Acetaminophen [Tylenol] Med 05/01/16 18:16 Active 1,000 mg PO Q6H Albuterol Sulfate Mdi [Ventolin Hfa Mdi] Med 05/02/16 07:07 Active 2 puffs IH Q4H PRN Ascorbic Acid [Vitamin C] Med 05/01/16 21:00 Active 500 mg PO BID Aspirin (Enteric Coated) [Ecotrin] Med 05/02/16 09:00 Active 325 mg PO DAILY Bisacodyl [Dulcolax] Med 05/04/16 16:30 Active 10 mg UT DAILY PRN Budesonide/Formoterol 160/4.5 [Symbicort 160-4.5 Mcg Med 05/02/16 09:00 Active Inhaler] 1 puffs IH BID Calcium Carbonate [Tums] Med 05/01/16 18:16 Active 1,000 - 2,000 mg PO Q2H PRN Cyanocobalamin [Vitamin B-12] Med 05/02/16 12:00 Active 1,000 mcg IM Q14D D5 1/2NS with 20 mEq KCL [D51/2NS with 20 mEq KCL] 1, Med 05/01/16 18:16 Active 000 ml IV 125 mls/hr Docusate Sodium [Colace] Med 05/01/16 21:00 Active 100 mg PO BID Ergocalciferol [Vitamin D] Med 05/02/16 16:00 Active 50,000 units PO MoTh FERROUS SULFATE (65 Fe) [Ferrous Sulfate] Med 05/02/16 09:00 Active 325 mg PO DAILY Folic Acid Med 05/02/16 09:00 Active 2 mg PO DAILY Hydromorphone HCl [Dilaudid] Med 05/01/16 18:16 Active 0.5 mg IV Q1H PRN Hydroxyzine Pamoate [Vistaril] Med 05/01/16 18:16 Active 25 - 50 mg PO Q4H PRN Magnesium Hydroxide [Milk of Magnesia] Med 05/02/16 16:30 Active 30 ml PO DAILY PRN Magnesium Oxide Med 05/02/16 09:00 Active 400 mg PO TID Multivitamins [One-A-Day] Med 05/02/16 09:00 Active 1 tab PO DAILY Ondansetron 4 mg/2ml Vial [Zofran] Med 05/04/16 11:18 Active 4 - 6 mg IV Q4H PRN Oxycodone HCl [Roxicodone] Med 05/01/16 18:16 Active 5 - 10 mg PO Q4H PRN Oxycodone Sr [Oxycontin] Med 05/01/16 21:00 Active 10 mg PO Q12HR Promethazine HCl [Phenergan] 12.5 mg Med 05/04/16 11:15 Active Sodium Chloride 0.9% 50 ml IV Q6H Sodium Chloride 0.9% 500 ml Med 05/02/16 07:18 Active IV 25 mls/hr Sodium Chloride 0.9% Flush [Normal Saline 10ml Flush] Med 05/01/16 18:16 Active 10 - 50 ml IV PRN PRN Sodium Chloride 0.9% Flush [Normal Saline 10ml Flush] Med 05/02/16 01:00 Active 10 ml IV Q8HR Tramadol HCl [Ultram] Med 05/02/16 00:30 Active 50 mg PO Q6H PRN Trazodone HCl [Desyrel] Med 05/01/16 18:16 Active 25 mg PO BEDTIME PRN Intake and Output 05/03/16 05/04/16 05/05/16 23:59 23:59 23:59 Intake Total 3089 2400 Output Total 2275 701 Balance 1414 1699 General: Afebrile, No Acute Distress HEENT: EOMI Lungs: Normal Air Movement Abdomen: Soft, No Tenderness Skin: Normal Color, Warm, Dry Neurological: Grossly Intact, Alert, Oriented x 4, Normal Speech, No Normal Gait Psych/Mental Status: Normal Affect, Normal Mood - Right Lower Extremity Incision: Dressing Clean/Dry/Intact, Well Approximated, Sb Intact, No Drainage, No Erythema Motor: Extensor Hallucis Longus: 5/5, Tibialis Anterior: 5/5, Gastrocnemius: 5/5 , Peroneals: 5/5, Quadriceps: 4/5 Gross Sensation to Light Touch: Present: Deep Peroneal Nerve, Superficial Peroneal Nerve, Medial Plantar Nerve, Lateral Plantar Nerve, Sural Nerve, Saphenous Nerve Capillary Refill: < 3 Seconds Motion: 0-80 (posterior hip precautions) - Problems (1) Status post total hip replacement, right Status: Acute Assessment/Plan: POD#4 R KRISTIN 1. Physical Therapy: Cleared for discharge home this morning. 2. Pain Control: Doing well on multimodal; pressure seems to be handling the narcotics better than it was initially. 3. DVT Prophylaxis: ASA 325 daily/mechanical/ambulation 4. Disposition: home with family assist 5. Medical Issues: pressure improved, H/H stable. Philip Castro MD (2) Anemia associated with acute blood loss Status: Acute Assessment/Plan: Acute blood loss during surgery (500 mL); now s/p transfusion with acceptable, stable H/H (3) Hypotension due to medication Status: Acute Assessment/Plan: Patient initially moderately hypotensive postop, likely due to combination of narcotic meds and volume loss. Now improved, responding appropriately with mobilization, no orthostatic symptoms.
--- NOTE | 2016-05-05 09:30 | PDOC5 ---
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 After a discussion of the risks, benefits, and alternatives of ongoing therapies, patient elected to proceed with right total hip arthroplasty. The patient underwent standard preoperative clearance and education, and presented to the hospital on the scheduled date for surgery. BRIEF HOSPITAL COURSE: Patient tolerated the procedure without complication and was admitted postoperatively for observation, pain control, and rehabilitation. She initially had anemia secondary to acute blood loss and mild hypotension due to a combination of volume loss and narcotic effects. She received 2 units PRBC on POD#1 with an appropriate increase in her H/H. She had good volume resuscitation and limited narcotics, which led to an increase in blood pressure to her baseline over the first two days after surgery. Patient progressed somewhat slowly with Physical Therapy, likely due to her medical complications and the complexity of her reconstruction. On POD#4 patient met all criteria for discharge and was discharged home with family assistance. Follow-up appointments for outpatient Physical Therapy and Orthopedics were provided at the time of discharge. Patient restarted preoperative medications, and received prescriptions for postoperative pain medications, a stool softener, and DVT prophylaxis. Philip Castro MD - Discharge Diagnosis (1) Status post total hip replacement, right Status: Acute (2) Anemia associated with acute blood loss Status: Acute (3) Hypotension due to medication Status: Acute - Discharge Plan Additional Instructions: PROCEDURE: Right total hip arthroplasty (replacement) 1.) Dressings: may remove dressings on POD#4 and shower normally, let water run over incision and pat dry, but do not submerge or scrub incision. Cover with clean dressing and then change dressing every day until completely dry. 2.) Activity: may bear weight as tolerated with assistive device at all times. Outpatient PT as previously scheduled. Daily exercises as instructed by PT. Posterior hip precautions at all times as instructed. 3.) Medications: a.) Oxycontin: long-acting pain medication taken morning and evening for 10 days, no refills b.) Tramadol: as-needed pain medication for mild to moderate breakthrough pain (call for refills 3-4 days before running out) c.) Oxycodone: as-needed pain medication for severe breakthrough pain (call for refills 3-4 days before running out) d.) Aspirin 325 mg (over-the counter): one tab daily for 4 weeks for prevention of blood clots e.) Colace: stool softener to help prevent constipation, taken twice a day as long as you are on narcotics; if continued constipation, get Magnesium Citrate [id number] and use per instructions every 12 hours until you have a bowel movement. 4.) Followup: , May 16 at 10:30 AM at the [facility]. Call [phone] to confirm your appointment. 5.) Questions: call my office ([phone]) with any questions or concerns. Go to ED or call 911 for any acute changes in health status or emergencies. Philip Castro MD Prescriptions: Ondansetron ODT [Zofran Odt] 4 mg PO Q4H PRN #30 tab.rapdis PRN Reason: Nausea/Vomiting Follow-Up: PT Jayro Henson [Other] - As scheduled Gen Kirkland PA [Physician Family Living Educator] - 05/16/16 10:30 am
[2016-05-05] MEDS: ASPIRIN (ENTERIC COATED) 325 MG TABLET.EC PO SCH (09:57)
[2016-05-05] MEDS: FERROUS SULFATE (65 Fe) 325 MG TABLET PO SCH (09:57)
[2016-05-05] MEDS: MULTIVITAMINS 1 TAB TABLET PO SCH (09:58)
[2016-05-05] MEDS: Magnesium Oxide 400 MG TABLET PO SCH (09:58)
[2016-05-05] MEDS: DOCUSATE SODIUM 100 MG CAPSULE PO SCH (09:58)
[2016-05-05] MEDS: OXYCODONE HCL 10 MG TAB.SR PO SCH (09:58)
[2016-05-05] MEDS: ASCORBIC ACID 500 MG TABLET PO SCH (09:58)
[2016-05-05] MEDS: FOLIC ACID 1 MG TABLET PO SCH (09:58)
[2016-05-05] MEDS: BUDESONIDE/FORMOTEROL 160/4.5 60 PUFFS/6 G INHALER IH SCH (10:00)
--- NOTE | 2016-05-07 11:50 | OP ---
Mary WERNER : 1970 [id number] DATE OF SERVICE: May 01, 2016 PREOPERATIVE DIAGNOSIS: Right hip osteoarthritis secondary to developmental dysplasia. POSTOPERATIVE DIAGNOSIS: Right hip osteoarthritis secondary to developmental dysplasia. PROCEDURE PERFORMED: RIGHT TOTAL HIP ARTHROPLASTY. SURGEON: Philip Castro M.D. SALVAGE ENGINEERING TECHNICIAN: Gen Kirkland P.A.-C. ANESTHESIA: Marychuy Gar C.R.N.A. SPECIMENS: No material was sent to the laboratory. ESTIMATED BLOOD LOSS: 350mL. FLUIDS REPLACED: 2500 mL of crystalloid. URINE OUTPUT: 200 mL. IMPLANTS: DePuy Stratton size 54 cluster hole cup with an SROM size 11 stem with a size F small sleeve, a 36 neck and a 36 +9 BioLox head. 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 Patient has exam and radiographic findings, which support this diagnosis. In order to restore patient's ability to participate in desired level of activities they were offered a total hip arthroplasty. The risks, benefits and alternatives of therapy were discussed with the patient at length and they elected to proceed with surgery. The patient underwent preoperative clearances. Informed consent was obtained and documented in the chart and the patient was placed on the schedule at the first available convenience. DESCRIPTION OF PROCEDURE: The patient was identified in the pre-operative holding area where they were marked with an indelible marker by the operating surgeon. Patient was taken to the operating room where they underwent a spinal anesthetic and then was positioned on the left side using a pegboard for intraoperative positioning. An axillary roll was placed and all bony prominences were padded. The patient was prepped and draped in the usual sterile fashion for surgery and received perioperative antibiotics and tranexamic acid. A final operative time out was performed and confirmed by all members of the operative team. A standard posterior approach to the hip was used with dissection carried down to the fascia overlying the greater trochanter. The fascia was divided and a Charnley retractor was placed. The trochanteric bursa was excised. The sciatic nerve was identified and protected throughout the procedure. The leg was taken into internal rotation and the piriformis tendon with elevated out of the piriformis fossa and tagged for later repair and then an L-shaped arthrotomy was made dividing the capsule as far anteriorly as we could get on the neck and then taking up a posterior flap that involved the posterior capsule and the remainder of the short external rotators. At this point the hip was dislocated posteriorly and the level of our neck cut was marked out with a neck cut to guide. A neck cut was made with an oscillating saw and the head was excised. The anterior capsule was excised using a Bovie as was the entirety of the labrum and anterior and posterior and inferior retractors were placed. We started reaming with a 32 mm reamer to get medial to the true floor of the acetabulum and then reamed up to a 53 mm which gave us a good circumferential bleeding bone and appropriate fit. A 53 mm trial was placed and we were satisfied with the fit of the acetabulum. Intraoperative radiographs were obtained which documented appropriate position and size of the cut. This was exchanged then for a 54 mm Stratton cup with cluster holes. This was impacted in place and had excellent stability and position. Some overhanging bone in the anterior portion of the cup was excised using an osteotome and then a domed hole plug was placed and the neutral liner was impacted into the cup. At this point the anterior, posterior and inferior retractors were removed. The femoral neck elevator was placed and access to the proximal femur was obtained using a box osteotome and a canal finder. We began reaming and reamed up to a size 11 for the SROM stem. A proximal reamer was used to ream up to a size F neck and the mill was used for an F small. Trial implants were placed and neck length was set at 36. Our version was set to 20 degrees anterior and a trial head was placed, we trialed a variety of head and neck combinations until we arrived on a +9 head for a 36 with a neutral liner. At this point the femoral trials were removed. The canal was copiously irrigated with pulse lavage and final stem and neck were impacted. We broached up until we had good rotational and a longitudinal stability with a size LLL broach and then trialed off of that broach eventually settling on a standard offset with a MMM mm head at NNN neck length. This gave us excellent stability throughout. Anatomic range of motion did not show excessive tightness in extension, showed no tightness in the sciatic nerve and appropriately matched the opposite leg length. At this point all the trials were removed from the femur. The canal was copiously irrigated with a pulse lavage and the final stem was impacted into place. A 36 +9 BioLox head was then tapped on to the trunnion and the hip was reduced. Again, we were satisfied with our range of motion, leg length and stability. Three drill holes were made in the posterior, superior greater trochanter and the sutures that had been previously placed in the piriformis and the posterior capsule were used to repair these structures back to the femur. The hip was placed into a slightly abducted and externally rotated position. The Charnley retractors were removed. Everything was copiously irrigated with sterile saline and we closed the fascia with a running #0 Quill, the subcutaneous fat with a running #0 Vicryl, the subcutaneous tissues with interrupted sutures of #2-0 Vicryl and the skin with allyson. A sterile dressing of Xeroform, fluffs, ABDs and Medipore tape was applied. The drapes were removed. The patient was repositioned supine, transferred to a stretcher and taken postoperatively to the post anesthesia care unit in stable condition. There were no observed intraoperative conditions during this procedure. Job [id number] Cc: [facility]
== END 2016-05-05 10:42 | disposition home or self-care (01) | DRG 470 ==
LOC: OR 09:02 → MS 20:04
PROVIDERS: ADMIT Orthopaedic Surgery; ATTEND Orthopaedic Surgery
PROC: 0SR904A Replacement of Right Hip Joint with Ceramic on Polyethylene Synthetic Substitute, Uncemented, Open Approach (ICD-10-PCS; principal; 2016-05-01)
DX: M16.11 Unilateral primary osteoarthritis, right hip (principal); K57.92 Diverticulitis of intestine, part unspecified, without perforation or abscess without bleeding; Q89.8 Other specified congenital malformations; J45.909 Unspecified asthma, uncomplicated; J44.9 Chronic obstructive pulmonary disease, unspecified; F17.210 Nicotine dependence, cigarettes, uncomplicated